=== PATIENT | male | born 1960 | race Caucasian/White ===

== ENCOUNTER 2019-10-04 14:34 | Emergency (ER) | payer OTHER, SELFPAY ==
[2019-10-04] VITALS (40 sets, daily range): BP systolic 138–177; BP diastolic 102–124; PULSE 71–98; RESP 10–23; TEMP 36.5; O2SAT 93–98
--- NOTE | 2019-10-04 14:30 | RT.EKG_ITS ---
APPROVED REPORT Exam: Resting ECG Patient Location: E HR:83 bpm ECG Measurements Heart Rate 83 AXIS WV 146 P 58 QRSd 112 QRS -48 QT 380 T 92 QTc 448 <Conclusion> Sinus rhythm...normal P axis, V-rate83 Incomplete left bundle branch block
--- NOTE | 2019-10-04 14:45 | DI.RAD_ITS ---
EXAM: XR PORTABLE CHEST AP CLINICAL HISTORY: substernal burning TECHNIQUE: 2D digital imaging was performed. COMPARISON: No exams were available for comparison FINDINGS: LUNGS: Clear. No pleural abnormality seen. Mild fibrotic changes. HEART: Normal. MEDIASTINUM: Normal. OTHER FINDINGS: Leads overlie the chest. IMPRESSION: No acute pulmonary findings. DATA REPOSITORY: RADIATION DOSE DELIVERED:
--- NOTE | 2019-10-04 14:48 | ED.GENADUL_ITS ---
Discharge Plan Disposition Patient Disposition: HOME Condition: Improving Discharge Details Chief Complaint: Chest Pain Clinical Impression: Gastritis Primary Care Provider: Unknown,Unknown ED Provider: López Amado Home Meds and New Rx's Prescriptions: New famotidine 40 mg tablet 40 mg PO DAILY Qty: 30 RF: 0 Continued aspirin [Aspir-81] 81 mg Tablet,Delayed Release (Dr/Ec) 81 mg PO DAILY RF: 0 simvastatin 40 mg Tablet 40 mg PO DAILY RF: 0 lisinopril 30 mg Tablet 30 mg PO DAILY RF: 0 Therapeutic Shampoo 0.5 % Shampoo 0.5 % TOPICAL PRN PRNRF: 0 Discharge Instructions Instructions: Gastritis (ED) Additional Instructions: Your work-up today included blood work with troponin x2, x-ray. I recommend that you begin famotidine once daily for 30 days or similar. Continue your regularly prescribed medications. Medical Decision Making 58-year-old male presents from [facility]. He states to me he has had now day 4 of a burning substernal discomfort that is worse at night and while lying flat. His exam is unremarkable. Note of mild hypertension 160/100. States he has no discomfort at this time. Differential diagnosis includes esophageal spasm/esophagitis/GERD. Must consider ACS, hypertensive urgency. Patient had IV access established, placed on a monitor car operator, referred for EKG, laboratory testing, chest x-ray. Chest x-ray without acute cardiopulmonary disease. Laboratories including CBC, chemistries, LFTs, troponin, lipase are essentially unremarkable. Note is made of creatinine of 1.4. Patient was having monitor car operator and repeat troponin obtained and is also negative. I do feel this is most consistent with gastritis. Will advocate the patient be placed on famotidine for 30 days. He is stable and appropriate for discharge back to the correctional facility. HPI General Mode of arrival: ambulatory . Date/Time Provider Initiated Documentation: 10/04/19 14:39 . Limitations to Documentation: no limitations . Information obtained by: patient . History of Present Illness 58 year old M presents to the emergency department with the chief complaint of Burning discomfort substernal, described as moderate, Quality is described as dull, and is localized to the chest and abdomen. Patient reports no radiation. Patient started experiencing this day(s) and it has been intermittent and now resolved. Other factors that worsen symptoms (Worse lying flat at night) . Patient notes denies shortness of breath. Patient did receive the following treatments prior to arrival, none Related Data Home Medications Medication Instructions Recorded Confirmed Therapeutic Shampoo 0.5 % TOPICAL PRN PRN 10/04/19 10/04/19 aspirin [Aspir-81] 81 mg PO DAILY 10/04/19 10/04/19 famotidine 40 mg PO DAILY #30 tab 10/04/19 lisinopril 30 mg PO DAILY 10/04/19 10/04/19 simvastatin 40 mg PO DAILY 10/04/19 10/04/19 Previous Rx's Medication Instructions Recorded famotidine 40 mg PO DAILY #30 tab 10/04/19 General Stated Complaint: Chest Pain SINDY: 2 Review of Systems Narrative: Denies pain at this time. Worse at night and while lying flat. No shortness of breath, no fever or cough. 6 systems reviewed and otherwise negative [facility] Social History Smoking/Tobacco Use Status: Former Tobacco Use Alcohol Intake: never Drug use: Never Substance use type: marijuana Do you feel safe at home: Yes Do you feel safe in your relationship?: Yes Exam Narrative Exam Narrative: GEN: awake, alert, oriented 3. Pleasant, well groomed, interactive. HEAD: Normocephalic, atraumatic ENT: Mucous membranes moist, oropharynx unremarkable, External ear exam unremarkable EYES: PERRL, EOMI NECK: Full ROM, no ASTON, no menigismus CHEST/RESP: Nontender, clear to auscultation bilateral, no wheeze/rhonchi/rales CARDIOVASCULAR: RRR, no murmur, rub leia. 2+ Rad pulse bilateral ABDOMEN: Soft, nontender, no mass. +Bowel sounds EXT: Full ROM, no edema, no rash Neuro: Grossly normal neurologic exam, conversant, interactive. Psych: Speech fluent, thoughts congruent, affect normal Course Vital Signs Vital signs: Vital Signs Temperature 36.5 C 10/04/19 14:36 Temperature 36.5 C 10/04/19 14:36 Temperature Source Tympanic 10/04/19 14:36 Respiratory Effort Non-Labored 10/04/19 14:39 Blood Pressure Position Sitting 10/04/19 14:36 Oxygen Delivery Method Room Air 10/04/19 14:36 Oxygen Flow Rate 0 10/04/19 14:36
[2019-10-04 14:57] LABS: Abs Immature Grans 0.01 k/cumm (0.0-0.09); Absolute Basophil Count 0.04 k/cumm (0.0-0.2); Absolute Monocyte Count 0.47 k/cumm (0.11-0.7); Absolute Neutrophil Count 2.87 k/cumm (1.2-6.7); Basophils % 0.7; Eosinophils % 3.7; HCT 40.3 % (40.0-50.0); HGB 13.4 g/dL (13.5-17.5); Immature Grans % 0.2 %; Lymphocytes % 33.4; Mean Corp. HGB Concentration 33.3 g/dL (32.0-36.0); Mean Corpuscular Volume 96.2 fL (80-95); Mean Platelet Volume 9.5 fL (8.0-11.0); Monocytes % 8.7; Neutrophils % 53.3; Platelet Count 238 x1000/uL (130-400); RBC 4.19 m/cumm (4.50-6.00); RBC Distribution Width 13.8 % (11.8-14.1); White Blood Cell Count 5.39 k/cumm (4.4-10.8)
--- NOTE | 2019-10-04 15:14 | DI.VRAD_ITS ---
PROCEDURE INFORMATION: Exam: XR Chest, 1 View Exam date and time: 10/04/2019 2:48 PM Age: 58 years old Clinical indication: Other: Substernal burning TECHNIQUE: Imaging protocol: XR of the chest Views: 1 view. COMPARISON: No relevant prior studies available. FINDINGS: The lung brink are clear bilaterally. No focal pulmonary consolidation is present. The cardiac silhouette is within normal limits. The costophrenic angles are sharp. The bony structures appear unremarkable. IMPRESSION: No evidence of acute cardiopulmonary disease. Dictated and Authenticated by: Christiano De La Torre MD. Ordering:GIDEON Dawn MD
[2019-10-04 15:19] LABS: ALT 25 U/L (16-63); AST 22 U/L (15-37); Albumin 4.2 g/dL (3.4-5.0); Alkaline Phosphatase 46 U/L (46-116); Anion Gap 8.8 mmol/L (3-11); BUN 16 mg/dL (7-18); Bilirubin, Total 0.4 mg/dL (0.2-1.0); CO2 28.2 mmol/L (21.0-32.0); CREATININE 1.42 mg/dL (0.70-1.30); Calcium 8.9 mg/dL (8.5-10.1); Chloride 104 mmol/L (98-107); Estimated GFR 50.85 (mL/min/1.73m2); Glucose 90 mg/dL (74-106); Lipase 95 U/L (73-393); Magnesium 1.9 mg/dL (1.8-2.4); Potassium 3.9 mmol/L (3.5-5.1); Sodium 141 mmol/L (136-145)
[2019-10-04 15:25] LABS: Troponin I < 0.05 ng/mL (<0.06)
[2019-10-04 18:07] LABS: Troponin I < 0.05 ng/mL (<0.06)
== END 2019-10-04 18:20 | disposition home or self-care (01) ==
PROVIDERS: Emergency Provider Emergency Medicine
DX: K29.00 Acute gastritis without bleeding (principal); I10 Essential (primary) hypertension
CPT/HCPCS: 36415; 80053; 83690; 93005; 99284; 71045; 83735; 84484; 85025; 93010